=== PATIENT | female | born 1990 | race Caucasian/White ===

== ENCOUNTER 2020-04-02 10:25 | Emergency (ER) | payer MEDICAID ==
[2020-04-02 10:39] VITALS: BP 118/74; PULSE 111
--- NOTE | 2020-04-02 10:56 | EDM.PDOC ---
ED HPI GENERAL MEDICAL PROBLEM - General Chief Complaint: Abdominal Pain Stated Complaint: LOWER RIGHT SIDE ABD PAIN Time Seen by Provider: 04/02/20 10:48 Source of Information: Reports: Patient History Limitations: Reports: No Limitations - History of Present Illness Onset: Today Onset Date: 04/01/20 Onset Time: 22:30 Duration: Hour(s): (11), Getting Worse Location: Reports: Abdomen Quality: Reports: Sharp Severity: Severe (Pain awoke her from sleep and then she was unable to sleep the rest of the night. 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 Right Lower Abdomen Pain Score (Numeric/FACES): 9 - Related Data Allergies Allergy/AdvReac Type Severity Reaction Status Date / Time acetaminophen Allergy Hives Verified 04/02/20 10:41 [From Tylenol-Codeine #3] cephalexin [Cephalexin] Allergy Rash Verified 04/02/20 10:41 codeine phosphate Allergy Hives Verified 04/02/20 10:41 [From Tylenol-Codeine #3] Home Meds: Home Meds NK [No Known Home Meds] 04/02/20 [History] Past Medical History - Past Health History Medical/Surgical History: Denies Medical/Surgical History Other Respiratory History: smoker Genitourinary History: Reports: Renal Calculus 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 Denies: Black Stool, Bloody Stool, Diarrhea, Distension : Reports: Dysuria Neurological: Denies: Confusion, Headache Psychiatric: Reports: No Symptoms ED EXAM, GI/ABD - Physical Exam Exam: See Below Exam Limited By: No Limitations General Appearance: Alert, Obese Ears: Normal External Exam Nose: Normal Inspection Throat/Mouth: Normal Inspection Head: Atraumatic, Normocephalic Neck: Normal Inspection Respiratory/Chest: No Respiratory Distress, Lungs Clear, Normal Breath Sounds Cardiovascular: No Murmur, Tachycardia GI/Abdominal Exam: No Organomegaly, Tender (Both lower quadrants, right more so than left), Abnormal Bowel Sounds (No bowel sounds heard). No: Guarding, Rigid Extremities: Normal Inspection, Normal Range of Motion Neurological: Alert, Oriented Psychiatric: Normal Affect Skin Exam: Warm, Dry Course - Vital Signs Text/Narrative:: 1250 The patient's CBC, comprehensive profile and urinalysis are all normal. I have communicated this to the patient. She insists that she had severe pain like she has never had before. She states she still has pain but now she is hungry and wants something to eat. Perform CT scan if there is no gross abnormality will go ahead and feed her. Last Recorded V/S: Last Vital Signs Temp 36.4 C 04/02/20 10:45 Pulse 111 H 04/02/20 10:45 Resp 16 04/02/20 10:45 BP 118/74 04/02/20 10:45 Pulse Ox 97 04/02/20 10:45 - Orders/Labs/Meds Orders: Active Orders 24 hr Category Date Time Status Iopamidol [Isovue-300 (61%)] Med 04/02/20 13:04 Active 98 ml IV . DIRECTED PRN Medication Orders Iopamidol (Isovue-300 (61%)) 98 ml IV . DIRECTED PRN PRN Reason: RADIOLOGY EXAM Stop: 04/03/20 13:05 Last Admin: 04/02/20 13:46 Dose: 98 ml Labs: Laboratory Tests 04/02/20 04/02/20 04/02/20 Range/Units 11:10 11:10 11:10 WBC 7.9 (4.5-11.0) K/uL RBC 4.65 (3.30-5.50) M/uL Hgb 13.4 D (12.0-15.0) g/dL Hct 41.6 (36.0-48.0) % MCV 90 (80-98) fL MCH 29 (27-31) pg MCHC 32 (32-36) % Plt Count 297 (150-400) K/uL Sodium 135 L (140-148) mmol/L Potassium 4.5 (3.6-5.2) mmol/L Chloride 100 (100-108) mmol/L Carbon Dioxide 28 (21-32) mmol/L Anion Gap 11.5 (5.0-14.0) mmol/L BUN 11 (7-18) mg/dL Creatinine 0.8 (0.6-1.0) mg/dL Est Cr Clr Drug Dosing 85.83 mL/min Estimated GFR (MDRD) > 60 (>60) Glucose 84 (74-106) mg/dL Lactic Acid 0.7 (0.4-2.0) mmol/L Calcium 8.4 L (8.5-10.1) mg/dL Total Bilirubin 0.3 (0.2-1.0) mg/dL AST 19 (15-37) U/L ALT 33 (12-78) U/L Alkaline Phosphatase 83 (46-116) U/L Total Protein 7.4 (6.4-8.2) g/dL Albumin 3.2 L (3.4-5.0) g/dL Globulin 4.2 H (2.3-3.5) g/dL Albumin/Globulin Ratio 0.8 L (1.2-2.2) Lipase 87 (73-393) U/L Urine Color (YELLOW) Urine Appearance (CLEAR) Urine pH (5.0-8.0) Ur Specific [place] (1.008-1.030) Urine Protein (NEGATIVE) mg/dL Urine Glucose (UA) (NEGATIVE) mg/dL Urine Ketones (NEGATIVE) mg/dL Urine Occult Blood (NEGATIVE) Urine Nitrite (NEGATIVE) Urine Bilirubin (NEGATIVE) Urine Urobilinogen (0.2-1.0) EU/dL Ur Leukocyte Esterase (NEGATIVE) Urine RBC (0-5) Urine WBC (0-5) Ur Epithelial Cells Amorphous Sediment Urine Bacteria Urine Mucus Urine HCG, Qual 04/02/20 04/02/20 Range/Units 12:06 12:06 WBC (4.5-11.0) K/uL RBC (3.30-5.50) M/uL Hgb (12.0-15.0) g/dL Hct (36.0-48.0) % MCV (80-98) fL MCH (27-31) pg MCHC (32-36) % Plt Count (150-400) K/uL Sodium (140-148) mmol/L Potassium (3.6-5.2) mmol/L Chloride (100-108) mmol/L Carbon Dioxide (21-32) mmol/L Anion Gap (5.0-14.0) mmol/L BUN (7-18) mg/dL Creatinine (0.6-1.0) mg/dL Est Cr Clr Drug Dosing mL/min Estimated GFR (MDRD) (>60) Glucose (74-106) mg/dL Lactic Acid (0.4-2.0) mmol/L Calcium (8.5-10.1) mg/dL Total Bilirubin (0.2-1.0) mg/dL AST (15-37) U/L ALT (12-78) U/L Alkaline Phosphatase (46-116) U/L Total Protein (6.4-8.2) g/dL Albumin (3.4-5.0) g/dL Globulin (2.3-3.5) g/dL Albumin/Globulin Ratio (1.2-2.2) Lipase (73-393) U/L Urine Color Yellow (YELLOW) Urine Appearance Clear (CLEAR) Urine pH 7.0 (5.0-8.0) Ur Specific [place] 1.015 (1.008-1.030) Urine Protein Negative (NEGATIVE) mg/dL Urine Glucose (UA) Negative (NEGATIVE) mg/dL Urine Ketones Negative (NEGATIVE) mg/dL Urine Occult Blood Negative (NEGATIVE) Urine Nitrite Negative (NEGATIVE) Urine Bilirubin Negative (NEGATIVE) Urine Urobilinogen 0.2 (0.2-1.0) EU/dL Ur Leukocyte Esterase Negative (NEGATIVE) Urine RBC Not seen (0-5) Urine WBC 0-5 (0-5) Ur Epithelial Cells Few Amorphous Sediment Not seen Urine Bacteria Few Urine Mucus Not seen Urine HCG, Qual Negative Meds: Medications Generic Name Dose Route Start Last Admin Trade Name Freq PRN Reason Stop Dose Admin Iopamidol 98 ml 04/02/20 13:04 04/02/20 13:46 Isovue-300 (61%) IV 04/03/20 13:05 98 ml . DIRECTED PRN Administration RADIOLOGY EXAM Discontinued Medications Generic Name Dose Route Start Last Admin Trade Name Freq PRN Reason Stop Dose Admin Sodium Chloride 70 mls @ 3 mls/sec 04/02/20 13:15 Normal Saline IV 04/02/20 13:16 ASDIRECTED [facility] Ondansetron HCl 4 mg 04/02/20 10:59 04/02/20 11:36 Zofran Odt PO 04/02/20 11:00 4 mg ONETIME ONE Administration Oxycodone HCl 5 mg 04/02/20 11:01 04/02/20 11:36 Oxycodone PO 04/02/20 11:02 5 mg ONETIME ONE Administration Sodium Chloride 10 ml 04/02/20 13:04 04/02/20 13:44 Saline Flush FLUSH 04/02/20 13:05 10 ml ONETIME ONE Administration Departure - Departure Time of Disposition: 14:36 Disposition: Home, Self-Care 01 Clinical Impression: Abdominal pain - Discharge Information Instructions: Abdominal Pain, Adult, [place] Referrals: PCP,None [Primary Care Provider] - Forms: ED Department Discharge Additional Instructions: Follow-up with your primary care doctor as soon as possible. We do not have a distinct diagnosis for your abdominal pain at this time. Other things that can cause abdominal pain that would not show up on the testing that we did in the emergency department would include: Kidney stone that has passed, viral enteritis (stomach flu), endometriosis, colitis (inflammation of the lining of your colon). Sepsis Event Note - Evaluation Sepsis Screening Result: Possible Sepsis Risk - Focused Exam Vital Signs: Vital Signs Temp Pulse Resp BP Pulse Ox 04/02/20 10:45 36.4 C 111 H 16 118/74 97 04/02/20 10:38 36.4 C 111 H 16 118/74 97 Date Exam was Performed: 04/02/20 Time Exam was Performed: 14:35 - My Orders Last 24 Hours: My Active Orders 04/02/20 13:04 Iopamidol [Isovue-300 (61%)] 98 ml IV . DIRECTED PRN - Assessment/Plan Last 24 Hours: My Active Orders 04/02/20 13:04 Iopamidol [Isovue-300 (61%)] 98 ml IV . DIRECTED PRN
[2020-04-02] MEDS: oxyCODONE 5 MG Tab PO ONE (11:36)
[2020-04-02] MEDS: Ondansetron 4 MG Tab.DIS PO ONE (11:36)
[2020-04-02] MEDS: Sodium Chloride 0.9% 10 ML Syringe FLUSH ONE (13:44)
[2020-04-02] MEDS: Iopamidol 612 MG/ML 100 ML Bottle IV PRN (13:46)
--- NOTE | 2020-04-02 14:16 | CRLCT ---
INDICATION: Abdominal pain. TECHNIQUE: CT abdomen and pelvis acquired with 96 cc Isovue-300 IV contrast. COMPARISON: None. FINDINGS: Lower chest: Unremarkable. Liver: Unremarkable. Normal in size and attenuation. No masses. Gallbladder and bile ducts: Unremarkable. No stones or inflammation. No biliary dilatation. Pancreas: Unremarkable. No mass or inflammation. Spleen: Unremarkable. Normal in size. No masses. Adrenal glands: Unremarkable. No nodules. Kidneys: Unremarkable. No masses, stones, or hydronephrosis. GI tract: Unremarkable. Normal in caliber. No sign of mass or inflammation. Normal appendix. Vasculature: Unremarkable. Mesenteric arteries are patent. Lymph nodes: No lymphadenopathy. Omentum/Peritoneum/Abdominal Wall: Unremarkable. No sign of mass or infiltration. No free air or significant free fluid. Pelvis: Unremarkable. Bones: Unremarkable for age. IMPRESSION: Unremarkable CT of the abdomen and pelvis. No findings to explain abdominal pain. Dictated by Dwaine Deutsch MD @ 04/02/2020 2:13:37 PM Please note that all CT scans at this facility use dose modulation, iterative reconstruction, and/or weight-based dosing when appropriate to reduce radiation dose to as low as reasonably achievable. Dictated by: Dwaine Deutsch MD @ 04/02/2020 14:13:41 (Electronically Signed)
== END 2020-04-02 14:55 | disposition home or self-care (01) ==
LOC: JP.ED 10:25
DX: R10.31 Right lower quadrant pain (principal); R10.32 Left lower quadrant pain; R00.0 Tachycardia, unspecified; F17.210 Nicotine dependence, cigarettes, uncomplicated; Z88.1 Allergy status to other antibiotic agents; Z88.5 Allergy status to narcotic agent
CPT/HCPCS: 36415; 74177; 80053; 81001; 81025; 83605; 83690; 85027; 99284; A9270; Q9967

== ENCOUNTER 2021-08-20 10:27 | Inpatient (IN) | payer MEDICAID ==
[2021-08-20] MEDS ORDERED: ePHEDrine 50 MG/ML SDV IVPUSH PRN (11:08)
[2021-08-20] MEDS: Lactated Ringers 1,000 ML IV ONE (11:10)
--- NOTE | 2021-08-20 11:45 | PCM.LDHP ---
L&D History of Present Illness - General Date of Service: 08/20/21 Admit Problem/Dx: Admission Diagnosis/Problem Admission Diagnosis/Problem Source of Information: Patient History Limitations: Reports: No Limitations - History of Present Illness Introduction:: 08/20/21 Nicole is a at 39 2/7 weeks in active labor. Contractions started last night around 11 pm. They became strong this morning. She is A positive blood type, GBS negative, HIV/hep B/C/RPR all NR. She complains of a gush of fluid around 1000 but had a negative amnisure. SVE 7/100/-2 at 1100, large bag of water felt. Uncomplicated . Timing/Duration: Reports: minutes: (3-4) Location, : Reports: Abdomen, Lower back Severity: Severe Improves with: Reports: None Worsens with: Reports: None Associated Symptoms: Reports: vaginal bleeding (bloody show) - Related Data Allergies/Adverse Reactions: Allergies Allergy/AdvReac Type Severity Reaction Status Date / Time acetaminophen Allergy Hives Verified 04/02/20 10:41 [From Tylenol-Codeine #3] cephalexin [Cephalexin] Allergy Rash Verified 04/02/20 10:41 codeine phosphate Allergy Hives Verified 04/02/20 10:41 [From Tylenol-Codeine #3] Home Medications: Home Meds NK [No Known Home Meds] 04/02/20 [History] Past Medical History - Past Health History Medical/Surgical History: Denies Medical/Surgical History Other Respiratory History: smoker Genitourinary History: Reports: Renal Calculus 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 LMP (Approximate): Social & Family History - Caffeine Use Caffeine Use: Reports: Soda H&P Review of Systems - Review of Systems: Review Of Systems: See Below General: Reports: No Symptoms HEENT: Reports: No Symptoms Pulmonary: Reports: No Symptoms Cardiovascular: Reports: No Symptoms Gastrointestinal: Reports: No Symptoms Genitourinary: Reports: No Symptoms Musculoskeletal: Reports: No Symptoms Skin: Reports: No Symptoms Psychiatric: Reports: No Symptoms Neurological: Reports: No Symptoms Hematologic/Lymphatic: Reports: No Symptoms Immunologic: Reports: No Symptoms L&D Exam - Exam Exam: See Below - Vital Signs Vital Signs: Last Vital Signs Temp 35.2 C L 08/20/21 10:50 Pulse 93 10/05/21 10:58 Resp BP 118/71 08/20/21 10:51 Pulse Ox 99 08/20/21 10:58 Weight: 86.183 kg - OB Specific Contraction Duration (sec): 65 - 130 Contraction Frequency (min): 3 - 4 Contraction Intensity: Strong Movement: Active Heart Tones: Present Heart Rate (FHR) Variability: Moderate (6-25 bpm) Presentation: Vertex - Exam General: Alert, Oriented HEENT: PERRLA Neck: Supple, Trachea Midline Lungs: Clear to Auscultation, Normal Respiratory Effort Cardiovascular: Regular Rate, Regular Rhythm GI/Abdominal Exam: Normal Bowel Sounds, Pelvis Stable Genitourinary: Normal external exam, Normal bimanual exam, Cervical dilitation Back Exam: Normal Inspection, Full Range of Motion Extremities: Normal Inspection, No Pedal Edema Skin: Warm, Dry, Intact Neurological: Cranial Nerves Intact, Reflexes Equal Bilateral Psychiatric: Alert, Normal Affect, Normal Mood - Patient Data Lab Results Last 24 hrs: Laboratory Results - last 24 hr 08/20/21 08/20/21 08/20/21 Range/Units 10:42 10:49 11:03 WBC (4.5-11.0) K/uL RBC (3.30-5.50) M/uL Hgb (12.0-15.0) g/dL Hct (36.0-48.0) % MCV (80-98) fL MCH (27-31) pg MCHC (32-36) % Plt Count (150-400) K/uL Neut % (Auto) (36-66) % Lymph % (Auto) (24-44) % [place] % (Auto) (2-6) % Eos % (Auto) (2-4) % Baso % (Auto) (0-1) % Urine Color Yellow (YELLOW) Urine Appearance Cloudy A (CLEAR) Urine pH 6.0 (5.0-8.0) Ur Specific [place] >= 1.030 (1.008-1.030) Urine Protein 30 H (NEGATIVE) mg/dL Urine Glucose (UA) Negative (NEGATIVE) mg/dL Urine Ketones 15 H (NEGATIVE) mg/dL Urine Occult Blood Large H (NEGATIVE) Urine Nitrite Negative (NEGATIVE) Urine Bilirubin Small H (NEGATIVE) Urine Urobilinogen 0.2 (0.2-1.0) EU/dL Ur Leukocyte Esterase Small H (NEGATIVE) Urine RBC 5-10 H (0-5) Urine WBC 10-20 H (0-5) Ur Epithelial Cells Many Amorphous Sediment Not seen Urine Bacteria Moderate Urine Mucus Many Membrane Rupture Negative (NEGATIVE) SARS CoV-2 RNA Rapid NEREYDA Negative 08/20/21 Range/Units 11:04 WBC 15.6 H (4.5-11.0) K/uL RBC 4.18 (3.30-5.50) M/uL Hgb 12.3 (12.0-15.0) g/dL Hct 36.9 (36.0-48.0) % MCV 88 (80-98) fL MCH 29 (27-31) pg MCHC 33 (32-36) % Plt Count 199 (150-400) K/uL Neut % (Auto) 75.7 H (36-66) % Lymph % (Auto) 14.0 L (24-44) % [place] % (Auto) 9.6 H (2-6) % Eos % (Auto) 0.4 L (2-4) % Baso % (Auto) 0.3 (0-1) % Urine Color (YELLOW) Urine Appearance (CLEAR) Urine pH (5.0-8.0) Ur Specific [place] (1.008-1.030) Urine Protein (NEGATIVE) mg/dL Urine Glucose (UA) (NEGATIVE) mg/dL Urine Ketones (NEGATIVE) mg/dL Urine Occult Blood (NEGATIVE) Urine Nitrite (NEGATIVE) Urine Bilirubin (NEGATIVE) Urine Urobilinogen (0.2-1.0) EU/dL Ur Leukocyte Esterase (NEGATIVE) Urine RBC (0-5) Urine WBC (0-5) Ur Epithelial Cells Amorphous Sediment Urine Bacteria Urine Mucus Membrane Rupture (NEGATIVE) SARS CoV-2 RNA Rapid NEREYDA Result Diagrams: 08/20/21 11:04 - Problem List (1) Term SNOMED Code(s): 95130408 ICD Code: Z34.90 - ENCNTR FOR SUPRVSN OF NORMAL , UNSP, UNSP TRIMESTER Status: Acute Current Visit: Yes (2) Active labor at term SNOMED Code(s): 19374082 ICD Code: FEF0724 - Status: Acute Current Visit: Yes Problem List Initiated/Reviewed/Updated: Yes Orders Last 24hrs: Active Orders 24 hr Category Date Time Status Communication Order [RC] ASDIRECTED Care 08/20/21 11:08 Active Communication Order [RC] Per Unit Routine Care 08/20/21 11:26 Active Communication Order [RC] Per Unit Routine Care 08/20/21 11:26 Active Communication Order [RC] Per Unit Routine Care 08/20/21 11:26 Active Communication Order [RC] Per Unit Routine Care 08/20/21 11:26 Active Insert Urinary Catheter [OM.PC] ASDIRECTED Care 08/20/21 11:15 Ordered Local Anesthetic Infusion Pump [RC] ASDIRECTED Care 08/20/21 11:08 Active Nitrous Oxide Delivery [RC] ASDIRECTED Care 08/20/21 11:26 Active Oxygen Therapy [RC] ASDIRECTED Care 08/20/21 11:26 Active PCEA Epidural [RC] ASDIRECTED Care 08/20/21 11:08 Active PCEA Epidural [RC] ASDIRECTED Care 08/20/21 11:08 Active Pulse Oximetry [RC] ASDIRECTED Care 08/20/21 11:26 Active Urinary Catheter Assessment [RC] ASDIRECTED Care 08/20/21 11:08 Active Verify Patient Consent Obtain [RC] ASDIRECTED Care 08/20/21 11:26 Active Vital Signs [RC] PER UNIT ROUTINE Care 08/20/21 11:26 Active DRUG SCREEN, URINE [URCHEM] Routine Lab 08/20/21 11:31 Ordered TYPE AND SCREEN [BBK] Routine Lab 08/20/21 11:08 Ordered Lactated Ringers [Ringers, Lactated] 1,000 ml Med 08/20/21 11:05 Active IV BOLUS ePHEDrine [ePHEDrine sulfate] Med 08/20/21 11:08 Active 10 mg IVPUSH ASDIRECTED PRN Epidural Catheter Management [OM.PC] Urgent Oth 08/20/21 11:08 Ordered Medication Discontinuation Instructions [OM.PC] Routine Oth 08/20/21 11:26 Ordered Medication Orders Ephedrine Sulfate (Ephedrine 50 Mg/Ml Sdv) 10 mg IVPUSH ASDIRECTED PRN PRN Reason: Hypotension Lactated Ringer's (Ringers, Lactated) 1,000 mls @ 999 mls/hr IV BOLUS ONE Stop: 08/20/21 12:05 Last Admin: 10/05/21 11:10 Dose: 999 mls/hr Documented by: ZEENAT Assessment/Plan Comment:: 08/20/21 in active labor Early decelerations but otherwise good variability Hgb 12.3 GBS negative Plan: Set up and prepare for delivery Anticipate Trying for an epidural but using nitrous now, may not have time for an epidural
[2021-08-20] MEDS ORDERED: Lactated Ringers 1,000 ML IV SCH (12:15)
[2021-08-20] MEDS ORDERED: Ropivacaine 100 ML ONE (12:16)
--- NOTE | 2021-08-20 12:39 | PCM.PNLD ---
Labor Progress Note - VS & Meds Vital Signs: Last Vital Signs Temp 96.4 F L 08/20/21 11:45 Pulse 105 H 08/20/21 11:50 Resp BP 135/63 08/20/21 11:45 Pulse Ox 99 08/20/21 11:50 Active Medications: Current Medications Ephedrine Sulfate (Ephedrine 50 Mg/Ml Sdv) 10 mg IVPUSH ASDIRECTED PRN PRN Reason: Hypotension Oxytocin/Sodium Chloride (Pitocin In Ns 20 Units/1,000 Ml) 20 unit in 1,000 mls @ 2,997 mls/hr IV ASDIRECTED JABIER Lactated Ringer's (Ringers, Lactated) 1,000 mls @ 125 mls/hr IV ASDIRECTED JABIER Discontinued Medications Lactated Ringer's (Ringers, Lactated) 1,000 mls @ 999 mls/hr IV BOLUS ONE Stop: 08/20/21 12:05 Last Admin: 08/20/21 11:10 Dose: 999 mls/hr Documented by: Ropivacaine (Naropin 0.2%) Confirm Administered Dose 100 mls @ as directed .ROUTE .STK-MED ONE Stop: 08/20/21 12:17 - Uterine Contractions Uterine Monitoring Mode: External [place] Contraction Frequency (min): 1 - 6 Contraction Duration (sec): 40 - 120 Contraction Intensity: Strong Uterine Resting Tone: Soft Other Uterine Monitoring: nitrous - Monitoring Monitor Mode: External Ultrasound Heart Rate (FHR) Baseline: 140 Heart Rate (FHR) Variability: Moderate (6-25 bpm) Accelerations: Present, 15x15 Decelerations: Variable Strip Review: Category II - Vaginal Exam Dilation (cm): 8 Effacement (Percent): 100 Station: -2 Cervical Position: Anterior Sterile Vaginal Exam Performed By: Zhane Crews - Labor Progress (Free Text) Labor Progress: 08/20/21 Nicole has been coping well with contractions by using nitrous oxide. By 1200, she has an epidural in place and is very comfortable. SVE at 1215 was 8/100/-2 with a bulging bag of water. Her contractions have spaced some since the epidural but she prefers to wait at this time rather than AROM. Plan will be to monitor contraction pattern, place a pritchard, and reassess cervical change in a few hours. Will anticipate
--- NOTE | 2021-08-20 13:09 | ANES ---
DATE OF SERVICE: 08/20/2021 INDICATIONS: Nicole is a 31-year-old female patient of July Yuan in our Obstetric Unit. 39 weeks, she is in labor. I was asked to consult the patient for labor epidural. Upon arrival, I find a 31-year-old, healthy female. Reviewed with her the procedure as well as risks and benefits. Discussed her medical history and reviewed lab work, found no contraindication to the labor epidural placement. TECHNIQUE: I had her seated at the edge of the bed after consent was received. Betadine prep x3 to lumbar region. Sterile drape was placed, 1% lidocaine skin wheal as well as deep at the L3-L4 region. I was unable to pass the 17-gauge Tou[place] due to bony structure and positioning. I repositioned to L3-L4 and was able to find loss of resistance with ease. Negative CSF, negative heme, negative paresthesia. I inserted a silicone catheter to 13 cm. I removed the needle. A test dose of 3 mL of 1.5% lidocaine and 1:200,000 epinephrine. Catheter was secured to her back. I placed her in a supine position. There were negative sequelae from the test dose. I dosed her with 12 mL of 0.2% ropivacaine and began an infusion of that same 0.2% ropivacaine at 12 mL an hour. She tolerated the procedure quite well. Please refer to nurse's notes for vital signs and neuro status, which were unchanged throughout the procedure. I then reported off to nurse and provider. Cornelius Hood CRNA /[id number]
[2021-08-20] MEDS ORDERED: Sodium Chloride 0.9% 10 ML Syringe FLUSH PRN (14:36)
[2021-08-20] MEDS ORDERED: Docusate Sodium 100 MG Cap PO PRN (17:24)
--- NOTE | 2021-08-20 17:40 | PCM.DEL ---
L & D Note - General Info Date of Service: 08/20/21 Mother's Due Date: 08/25/21 - Delivery Note Labor: Spontaneous, Augmented by ARM Delivery Outcome: Livebirth Delivery Method: Spontaneous Vaginal Delivery-Single Delivery Mode: Spontaneous Presentation: Right Occiput Anterior (ASHLEE) Nuchal Cord: None Anesthesia Type: Epidural Amniotic Fluid Description: Clear Episiotomy Type: None Laceration: None Placenta: Intact, Spontaneous Cord: 3 Vessels Estimated Blood Loss: 150 Resuscitation Needed: No [place]: Bulb Syringe, Stimulated, [place] Used Score 1 min: 8 Score 5 min: 9 Second Stage Interventions: Reports: Second Nurse Assessed Progress of Descent, Second Nurse Reviewed Contraction Pattern, Second Nurse Reviewed Heart Tones, Encouragement Given, Pushing Effectively, Pushing, Knee Chest Position, Pushing, Pulls Own Legs Back, Pushing, Right Side Delivery Comments (Free Text/Narrative):: 08/20/21 Nicole is a 31 year old at 39 weeks and 2 days gestation. She had a spontaneous vaginal delivery of a baby girl at 1710 in the GHAN[place]YAM position. Baby was stimulated and bulb suctioned and APGARs were 8 and 9 at 1 and 5 minutes respectively. There was no nuchal cord and it was a 3 vessel cord. She weighed 7lbs 15oz. The placenta was expressed spontaneously intact. There was no episiotomy and no tears, though she did have one small skin split on each labia. EBL was 150ml. Mother to recovery room in stable condition. to nursery in stable condition. Stages of labor: First: 7050-8199 Second: 6553-9325 Third: 2362-9869 ------- - General Info Date of Service: 08/20/21 Admission Dx/Problem (Free Text): Admission Diagnosis/Problem Admission Diagnosis/Problem Functional Status: Reports: Pain Controlled, Tolerating Diet - Review of Systems General: Reports: No Symptoms HEENT: Reports: No Symptoms Pulmonary: Reports: No Symptoms Cardiovascular: Reports: No Symptoms Gastrointestinal: Reports: No Symptoms Genitourinary: Reports: No Symptoms Musculoskeletal: Reports: No Symptoms Skin: Reports: No Symptoms Neurological: Reports: No Symptoms Psychiatric: Reports: No Symptoms - Patient Data Vitals - Most Recent: Last Vital Signs Temp 96.1 F L 08/20/21 14:31 Pulse 103 H 08/20/21 16:34 Resp 16 08/20/21 12:45 BP 113/57 L 08/20/21 16:34 Pulse Ox 98 08/20/21 14:50 Weight - Most Recent: 190 lb Lab Results Last 24 Hours: Laboratory Results - last 24 hr 08/20/21 08/20/21 08/20/21 Range/Units 10:42 10:49 11:03 WBC (4.5-11.0) K/uL RBC (3.30-5.50) M/uL Hgb (12.0-15.0) g/dL Hct (36.0-48.0) % MCV (80-98) fL MCH (27-31) pg MCHC (32-36) % Plt Count (150-400) K/uL Neut % (Auto) (36-66) % Lymph % (Auto) (24-44) % Fisher % (Auto) (2-6) % Eos % (Auto) (2-4) % Baso % (Auto) (0-1) % Urine Color Yellow (YELLOW) Urine Appearance Cloudy A (CLEAR) Urine pH 6.0 (5.0-8.0) Ur Specific [place] >= 1.030 (1.008-1.030) Urine Protein 30 H (NEGATIVE) mg/dL Urine Glucose (UA) Negative (NEGATIVE) mg/dL Urine Ketones 15 H (NEGATIVE) mg/dL Urine Occult Blood Large H (NEGATIVE) Urine Nitrite Negative (NEGATIVE) Urine Bilirubin Small H (NEGATIVE) Urine Urobilinogen 0.2 (0.2-1.0) EU/dL Ur Leukocyte Esterase Small H (NEGATIVE) Urine RBC 5-10 H (0-5) Urine WBC 10-20 H (0-5) Ur Epithelial Cells Many Amorphous Sediment Not seen Urine Bacteria Moderate Urine Mucus Many Membrane Rupture Negative (NEGATIVE) Urine Opiates Screen (NEGATIVE) Ur Oxycodone Screen (NEGATIVE) Urine Methadone Screen (NEGATIVE) Ur Propoxyphene Screen (NEGATIVE) Ur Barbiturates Screen (NEGATIVE) Ur Tricyclics Screen (NEGATIVE) Ur Phencyclidine Scrn (NEGATIVE) Ur Amphetamine Screen (NEGATIVE) U Methamphetamines Scrn (NEGATIVE) Urine MDMA Screen (NEGATIVE) U Benzodiazepines Scrn (NEGATIVE) U Cocaine Metab Screen (NEGATIVE) U Marijuana (THC) Screen (NEGATIVE) SARS CoV-2 RNA Rapid NEREYDA Negative Blood Type Gel Antibody Screen 08/20/21 08/20/21 08/20/21 Range/Units 11:04 11:30 11:31 WBC 15.6 H (4.5-11.0) K/uL RBC 4.18 (3.30-5.50) M/uL Hgb 12.3 (12.0-15.0) g/dL Hct 36.9 (36.0-48.0) % MCV 88 (80-98) fL MCH 29 (27-31) pg MCHC 33 (32-36) % Plt Count 199 (150-400) K/uL Neut % (Auto) 75.7 H (36-66) % Lymph % (Auto) 14.0 L (24-44) % Fisher % (Auto) 9.6 H (2-6) % Eos % (Auto) 0.4 L (2-4) % Baso % (Auto) 0.3 (0-1) % Urine Color (YELLOW) Urine Appearance (CLEAR) Urine pH (5.0-8.0) Ur Specific [place] (1.008-1.030) Urine Protein (NEGATIVE) mg/dL Urine Glucose (UA) (NEGATIVE) mg/dL Urine Ketones (NEGATIVE) mg/dL Urine Occult Blood (NEGATIVE) Urine Nitrite (NEGATIVE) Urine Bilirubin (NEGATIVE) Urine Urobilinogen (0.2-1.0) EU/dL Ur Leukocyte Esterase (NEGATIVE) Urine RBC (0-5) Urine WBC (0-5) Ur Epithelial Cells Amorphous Sediment Urine Bacteria Urine Mucus Membrane Rupture (NEGATIVE) Urine Opiates Screen Negative (NEGATIVE) Ur Oxycodone Screen Negative (NEGATIVE) Urine Methadone Screen Negative (NEGATIVE) Ur Propoxyphene Screen Negative (NEGATIVE) Ur Barbiturates Screen Negative (NEGATIVE) Ur Tricyclics Screen Negative (NEGATIVE) Ur Phencyclidine Scrn Negative (NEGATIVE) Ur Amphetamine Screen Negative (NEGATIVE) U Methamphetamines Scrn Negative (NEGATIVE) Urine MDMA Screen Negative (NEGATIVE) U Benzodiazepines Scrn Negative (NEGATIVE) U Cocaine Metab Screen Negative (NEGATIVE) U Marijuana (THC) Screen Negative (NEGATIVE) SARS CoV-2 RNA Rapid NEREYDA Blood Type A POSITIVE Gel Antibody Screen Negative Med Orders - Current: Current Medications Ephedrine Sulfate (Ephedrine 50 Mg/Ml Sdv) 10 mg IVPUSH ASDIRECTED PRN PRN Reason: Hypotension Oxytocin/Sodium Chloride (Pitocin In Ns 20 Units/1,000 Ml) 20 unit in 1,000 mls @ 999 mls/hr IV ASDIRECTED JABIER Lactated Ringer's (Ringers, Lactated) 1,000 mls @ 125 mls/hr IV ASDIRECTED JABIER Sodium Chloride (Sodium Chloride 0.9% 10 Ml Syringe) 10 ml FLUSH ASDIRECTED PRN PRN Reason: Keep Vein Open Discontinued Medications Lactated Ringer's (Ringers, Lactated) 1,000 mls @ 999 mls/hr IV BOLUS ONE Stop: 08/20/21 12:05 Last Admin: 08/20/21 11:10 Dose: 999 mls/hr Documented by: Ropivacaine (Naropin 0.2%) Confirm Administered Dose 100 mls @ as directed .ROUTE .STK-MED ONE Stop: 08/20/21 12:17 - Exam Urinary Catheter Total Time: 0Days 4Hours General: Alert, Oriented HEENT: Pupils Equal, Pupils Reactive, EOMI, Mucous Membr. Moist/[place] Neck: Supple Lungs: Normal Respiratory Effort Cardiovascular: Regular Rate, Regular Rhythm GI/Abdominal Exam: Soft, Non-Tender, Pelvis Stable (Female) Exam: Normal External Exam, Enlarged Uterus, Heart Tones Back Exam: Full Range of Motion Extremities: Normal Range of Motion Skin: Warm, Dry, Intact Neurological: No New Focal Deficit Psy/Mental Status: Alert, Normal Affect, Normal Mood - Problem List & Annotations (1) Normal spontaneous vaginal delivery SNOMED Code(s): 44935482, 823756388 Code(s): O80 - ENCOUNTER FOR FULL-TERM UNCOMPLICATED DELIVERY Status: Acute Current Visit: Yes (2) (infant) SNOMED Code(s): 126751355 Code(s): Z78.9 - OTHER SPECIFIED HEALTH STATUS Status: Acute Current Visit: Yes (3) started SNOMED Code(s): 299991303 Code(s): TVF0712 - Status: Acute Current Visit: Yes (4) Active labor at term SNOMED Code(s): 08866966 Code(s): PMS7774 - Status: Acute Current Visit: Yes - Problem List Review Problem List Initiated/Reviewed/Updated: Yes - My Orders Last 24 Hours: My Active Orders 08/20/21 14:30 Notify Provider Vital Signs [RC] PRN 08/20/21 14:36 Patient Status [ADT] Routine Communication Order [RC] ASDIRECTED Heart Tones [RC] PER UNIT ROUTINE Non Stress Test [RC] Click to Edit Notify Provider [RC] PRN Sodium Chloride 0.9% [Saline Flush] 10 ml FLUSH ASDIRECTED PRN Saline Lock Insert [OM.PC] Routine Resuscitation Status Routine - Assessment Assessment:: 08/20/21 without complications No lacerations Adequate support, partner at bedside - Plan Plan:: 08/20/21 in active labor Early decelerations but otherwise good variability Hgb 12.3 GBS negative Plan: Set up and prepare for delivery Anticipate Trying for an epidural but using nitrous now, may not have time for an epidural 08/20/21 1700 Routine cares Encourage and support Monitor bleeding Expect discharge between 24 and 48 hours
[2021-08-20] MEDS: Lanolin 100% Cream 40 GM Tube TOP PRN (18:02)
[2021-08-20] MEDS: Ibuprofen 200 MG Tab, 24 Tab Bulk Bottle PO PRN (18:02)
[2021-08-20] MEDS: Acetaminophen 325 MG Tab, 50 Tab Bulk Bottle PO PRN (20:03)
[2021-08-21] MEDS: Acetaminophen/HYDROcodone 325-5 MG Tab PO ONE (05:45)
[2021-08-21] MEDS: Acetaminophen/HYDROcodone 325-5 MG Tab ONE (08:04)
[2021-08-21] MEDS: Witch Hazel Medicated Pads 100/Jar TOP PRN (10:03)
--- NOTE | 2021-08-21 11:00 | PCM.PNPP ---
- General Info Date of Service: 08/21/21 Admission Dx/Problem (Free Text): Admission Diagnosis/Problem Admission Diagnosis/Problem Normal spontaneous vaginal delivery Functional Status: Reports: Tolerating Diet, Ambulating, Urinating - Review of Systems General: Reports: No Symptoms HEENT: Reports: No Symptoms Pulmonary: Reports: No Symptoms, Shortness of Breath (sometimes feels like a twinge of back pain "takes her breath away") Cardiovascular: Reports: No Symptoms Gastrointestinal: Reports: No Symptoms Genitourinary: Reports: No Symptoms Musculoskeletal: Reports: No Symptoms, Back Pain (at epidural site, notices sharp pain with movement) Skin: Reports: No Symptoms Neurological: Reports: No Symptoms Psychiatric: Reports: No Symptoms Systems Review Comment:: 08/21/21 Nicole is having intense sharp back pain that is somewhat relieved with medication. She notices it at the site of her epidural, and feels it wraps around to her belly in a sharp "twinge feeling that takes her breath away". No dyspnea on exertion, lung puente clear. She denies muscle pain on palpation at the site. - General Info Date of Service: 08/21/21 - Patient Data Vital Signs - Most Recent: Last Vital Signs Temp 97.1 F 08/21/21 07:15 Pulse 85 08/21/21 07:15 Resp 18 08/21/21 07:15 BP 97/50 L 08/21/21 07:15 Pulse Ox 100 08/21/21 07:15 Weight - Most Recent: 190 lb I&O - Last 24 Hours: Intake & Output 08/20/21 08/21/21 08/21/21 22:59 06:59 14:59 Intake Total 3399 Balance 3399 Lab Results - Last 24 Hours: Laboratory Results - last 24 hr 08/20/21 08/20/21 08/20/21 Range/Units 10:42 10:49 11:03 WBC (4.5-11.0) K/uL RBC (3.30-5.50) M/uL Hgb (12.0-15.0) g/dL Hct (36.0-48.0) % MCV (80-98) fL MCH (27-31) pg MCHC (32-36) % Plt Count (150-400) K/uL Neut % (Auto) (36-66) % Lymph % (Auto) (24-44) % Saline % (Auto) (2-6) % Eos % (Auto) (2-4) % Baso % (Auto) (0-1) % Urine Color Yellow (YELLOW) Urine Appearance Cloudy A (CLEAR) Urine pH 6.0 (5.0-8.0) Ur Specific Dora >= 1.030 (1.008-1.030) Urine Protein 30 H (NEGATIVE) mg/dL Urine Glucose (UA) Negative (NEGATIVE) mg/dL Urine Ketones 15 H (NEGATIVE) mg/dL Urine Occult Blood Large H (NEGATIVE) Urine Nitrite Negative (NEGATIVE) Urine Bilirubin Small H (NEGATIVE) Urine Urobilinogen 0.2 (0.2-1.0) EU/dL Ur Leukocyte Esterase Small H (NEGATIVE) Urine RBC 5-10 H (0-5) Urine WBC 10-20 H (0-5) Ur Epithelial Cells Many Amorphous Sediment Not seen Urine Bacteria Moderate Urine Mucus Many Membrane Rupture Negative (NEGATIVE) Urine Opiates Screen (NEGATIVE) Ur Oxycodone Screen (NEGATIVE) Urine Methadone Screen (NEGATIVE) Ur Propoxyphene Screen (NEGATIVE) Ur Barbiturates Screen (NEGATIVE) Ur Tricyclics Screen (NEGATIVE) Ur Phencyclidine Scrn (NEGATIVE) Ur Amphetamine Screen (NEGATIVE) U Methamphetamines Scrn (NEGATIVE) Urine MDMA Screen (NEGATIVE) U Benzodiazepines Scrn (NEGATIVE) U Cocaine Metab Screen (NEGATIVE) U Marijuana (THC) Screen (NEGATIVE) SARS CoV-2 RNA Rapid NEREYDA Negative Blood Type Gel Antibody Screen 08/20/21 08/20/21 08/20/21 Range/Units 11:04 11:30 11:31 WBC 15.6 H (4.5-11.0) K/uL RBC 4.18 (3.30-5.50) M/uL Hgb 12.3 (12.0-15.0) g/dL Hct 36.9 (36.0-48.0) % MCV 88 (80-98) fL MCH 29 (27-31) pg MCHC 33 (32-36) % Plt Count 199 (150-400) K/uL Neut % (Auto) 75.7 H (36-66) % Lymph % (Auto) 14.0 L (24-44) % Saline % (Auto) 9.6 H (2-6) % Eos % (Auto) 0.4 L (2-4) % Baso % (Auto) 0.3 (0-1) % Urine Color (YELLOW) Urine Appearance (CLEAR) Urine pH (5.0-8.0) Ur Specific [place]ora (1.008-1.030) Urine Protein (NEGATIVE) mg/dL Urine Glucose (UA) (NEGATIVE) mg/dL Urine Ketones (NEGATIVE) mg/dL Urine Occult Blood (NEGATIVE) Urine Nitrite (NEGATIVE) Urine Bilirubin (NEGATIVE) Urine Urobilinogen (0.2-1.0) EU/dL Ur Leukocyte Esterase (NEGATIVE) Urine RBC (0-5) Urine WBC (0-5) Ur Epithelial Cells Amorphous Sediment Urine Bacteria Urine Mucus Membrane Rupture (NEGATIVE) Urine Opiates Screen Negative (NEGATIVE) Ur Oxycodone Screen Negative (NEGATIVE) Urine Methadone Screen Negative (NEGATIVE) Ur Propoxyphene Screen Negative (NEGATIVE) Ur Barbiturates Screen Negative (NEGATIVE) Ur Tricyclics Screen Negative (NEGATIVE) Ur Phencyclidine Scrn Negative (NEGATIVE) Ur Amphetamine Screen Negative (NEGATIVE) U Methamphetamines Scrn Negative (NEGATIVE) Urine MDMA Screen Negative (NEGATIVE) U Benzodiazepines Scrn Negative (NEGATIVE) U Cocaine Metab Screen Negative (NEGATIVE) U Marijuana (THC) Screen Negative (NEGATIVE) SARS CoV-2 RNA Rapid NEREYDA Blood Type A POSITIVE Gel Antibody Screen Negative 08/21/21 Range/Units 05:11 WBC 15.6 H (4.5-11.0) K/uL RBC 3.97 (3.30-5.50) M/uL Hgb 12.0 (12.0-15.0) g/dL Hct 35.8 L (36.0-48.0) % MCV 90 (80-98) fL MCH 30 (27-31) pg MCHC 34 (32-36) % Plt Count 230 (150-400) K/uL Neut % (Auto) 62.3 (36-66) % Lymph % (Auto) 19.2 L (24-44) % Saline % (Auto) 17.2 H (2-6) % Eos % (Auto) 1.0 L (2-4) % Baso % (Auto) 0.3 (0-1) % Urine Color (YELLOW) Urine Appearance (CLEAR) Urine pH (5.0-8.0) Ur Specific [place]ora (1.008-1.030) Urine Protein (NEGATIVE) mg/dL Urine Glucose (UA) (NEGATIVE) mg/dL Urine Ketones (NEGATIVE) mg/dL Urine Occult Blood (NEGATIVE) Urine Nitrite (NEGATIVE) Urine Bilirubin (NEGATIVE) Urine Urobilinogen (0.2-1.0) EU/dL Ur Leukocyte Esterase (NEGATIVE) Urine RBC (0-5) Urine WBC (0-5) Ur Epithelial Cells Amorphous Sediment Urine Bacteria Urine Mucus Membrane Rupture (NEGATIVE) Urine Opiates Screen (NEGATIVE) Ur Oxycodone Screen (NEGATIVE) Urine Methadone Screen (NEGATIVE) Ur Propoxyphene Screen (NEGATIVE) Ur Barbiturates Screen (NEGATIVE) Ur Tricyclics Screen (NEGATIVE) Ur Phencyclidine Scrn (NEGATIVE) Ur Amphetamine Screen (NEGATIVE) U Methamphetamines Scrn (NEGATIVE) Urine MDMA Screen (NEGATIVE) U Benzodiazepines Scrn (NEGATIVE) U Cocaine Metab Screen (NEGATIVE) U Marijuana (THC) Screen (NEGATIVE) SARS CoV-2 RNA Rapid NEREYDA Blood Type Gel Antibody Screen Med Orders - Current: Current Medications Acetaminophen (Acetaminophen 325 Mg Tab, 50 Tab Bulk Bottle) 650 mg PO Q4H PRN PRN Reason: Pain (moderate 4-6) Last Admin: 08/20/21 20:03 Dose: 650 mg Documented by: Docusate Sodium (Docusate Sodium 100 Mg Cap) 100 mg PO BID PRN PRN Reason: Constipation Emollient Ointment (Lanolin 100% Cream 40 Gm Tube) 0 gm TOP ASDIRECTED PRN PRN Reason: Sore Nipples Last Admin: 08/20/21 18:02 Dose: 1 applic Documented by: Ephedrine Sulfate (Ephedrine 50 Mg/Ml Sdv) 10 mg IVPUSH ASDIRECTED PRN PRN Reason: Hypotension Oxytocin/Sodium Chloride (Pitocin In Ns 20 Units/1,000 Ml) 20 unit in 1,000 mls @ 999 mls/hr IV ASDIRECTED JABIER Last Infusion: 08/20/21 17:45 Dose: 125 mls/hr Documented by: Lactated Ringer's (Ringers, Lactated) 1,000 mls @ 125 mls/hr IV ASDIRECTED JABIER Ibuprofen (Ibuprofen 200 Mg Tab, 24 Tab Bulk Bottle) 600 mg PO Q6H PRN PRN Reason: Pain Last Admin: 08/20/21 18:02 Dose: 600 mg Documented by: Sodium Chloride (Sodium Chloride 0.9% 10 Ml Syringe) 10 ml FLUSH ASDIRECTED PRN PRN Reason: Keep Vein Open Witch Fiorella (Witch Fiorella Medicated Pads 100/Jar) 1 pad TOP ASDIRECTED PRN PRN Reason: Hemorrhoids Last Admin: 08/21/21 10:03 Dose: 1 pad Documented by: Discontinued Medications Hydrocodone Bitart/Acetaminophen (Acetaminophen/Hydrocodone 325-5 Mg Tab) Confirm Administered Dose 2 tab .ROUTE .STK-MED ONE Stop: 08/21/21 05:42 Last Admin: 08/21/21 08:04 Dose: Not Given Documented by: Hydrocodone Bitart/Acetaminophen (Acetaminophen/Hydrocodone 325-5 Mg Tab) 2 tab PO NOW ONE Stop: 08/21/21 05:01 Last Admin: 08/21/21 05:45 Dose: 2 tab Documented by: Lactated Ringer's (Ringers, Lactated) 1,000 mls @ 999 mls/hr IV BOLUS ONE Stop: 08/20/21 12:05 Last Admin: 08/20/21 11:10 Dose: 999 mls/hr Documented by: Ropivacaine (Naropin 0.2%) Confirm Administered Dose 100 mls @ as directed .ROUTE .STK-MED ONE Stop: 08/20/21 12:17 - Infant Interaction Disposition, : [place] in Room with Family Infant Interaction: Holding Infant Feeding: Breastfed Infant; Nursed Well, Continues to Breastfeed, Encouraged to Breastfeed Support Person: - Recovery Exam Fundal Tone: Firm Fundal Level: 1 Fingerbreadths Below Umbilicus Fundal Placement: Midline Lochia Amount: Small Lochia Color: Rubra/Red Perineum Description: Intact, Minimal Bruising/Swelling Episiotomy/Laceration: None Bladder Status: Voiding - Exam General: Alert, Oriented HEENT: Pupils Equal Neck: Supple Lungs: Clear to Auscultation, Normal Respiratory Effort Cardiovascular: Regular Rate, Regular Rhythm GI/Abdominal Exam: Normal Bowel Sounds, Soft, No Organomegaly, Pelvis Stable Extremities: Normal Inspection, Normal Range of Motion Skin: Warm, Dry, Intact Neurological: No New Focal Deficit Psy/Mental Status: Alert, Normal Affect, Normal Mood - Problem List & Annotations (1) Normal spontaneous vaginal delivery SNOMED Code(s): 78279473, 993430563 Code(s): O80 - ENCOUNTER FOR FULL-TERM UNCOMPLICATED DELIVERY Status: Acute Current Visit: Yes (2) () SNOMED Code(s): 041213324 Code(s): Z78.9 - OTHER SPECIFIED HEALTH STATUS Status: Acute Current Visit: Yes (3) started SNOMED Code(s): 727781032 Code(s): XPD2634 - Status: Acute Current Visit: Yes (4) Active labor at term SNOMED Code(s): 71678978 Code(s): SFW7434 - Status: Acute Current Visit: Yes - Problem List Review Problem List Initiated/Reviewed/Updated: Yes - My Orders Last 24 Hours: My Active Orders 08/20/21 14:30 Notify Provider Vital Signs [RC] PRN 08/20/21 14:36 Patient Status [ADT] Routine Sodium Chloride 0.9% [Saline Flush] 10 ml FLUSH ASDIRECTED PRN Saline Lock Insert [OM.PC] Routine Resuscitation Status Routine 08/20/21 18:33 dain Kraus [[place]ke] 1 pad TOP ASDIRECTED PRN - Assessment Assessment:: 08/20/21 without complications No lacerations Adequate support, partner at bedside 08/21/21 without complication well Pumping to supplement feeds Adequate support, partner at bedside Back pain at epidural site - Plan Plan:: 08/20/21 in active labor Early decelerations but otherwise good variability Hgb 12.3 GBS negative Plan: Set up and prepare for delivery Anticipate Trying for an epidural but using nitrous now, may not have time for an epidural 08/20/21 1700 Routine cares Encourage and support Monitor bleeding Expect discharge between 24 and 48 hours 08/21/21 Continue routine cares Encourage and support and pumping Monitor bleeding Continue oral analgesics for back pain, some ambulation encouraged Expect discharge this evening after 24 hours
[2021-08-21] MEDS: Cyclobenzaprine 10 MG Tab PO ONE (13:27)
[2021-08-21 15:44] VITALS: BP 109/62; PULSE 75
--- NOTE | 2021-08-21 16:15 | PCM.SN.2 ---
- Free Text/Narrative Note: 08/21/21 Patient is feeling fairly well. Bleeding is light and bottom is not sore. She still complains of back pain where her epidural was placed. SENIOR ACCOUNTING ASSOCIATE called and is not concerned due to no swelling, redness, headache, or numbness. The pain has not worsened. It is exacerbated by standing and bending. It is relieved with head, pain relievers, and muscle relaxer. going well. Patient desires discharge. She understands that if her back pain gets worse at all, she develops a headache, fever, or numbness anywhere she needs to come to ER. Rx for Flexeril. Time Documentation
== END 2021-08-21 18:15 | disposition home or self-care (01) | DRG 807 ==
LOC: JP.OBCHECK 10:27 → JP.OB 10:29 → JP.OBCHECK 10:58 → JP.OB 10:58 → OBSVTOIN 14:36 → JP.MS 23:19
PROVIDERS: ADMIT Advanced Practice Midwife; ATTEND Advanced Practice Midwife
PROC: 10E0XZZ Delivery of Products of Conception, External Approach (ICD-10-PCS; principal; 2021-08-20)
PROC: 3E0R3BZ Introduction of Anesthetic Agent into Spinal Canal, Percutaneous Approach (ICD-10-PCS; 2021-08-20)
PROC: 10907ZC Drainage of Amniotic Fluid, Therapeutic from Products of Conception, Via Natural or Artificial Opening (ICD-10-PCS; 2021-08-20)
DX: O99.334 Smoking (tobacco) complicating childbirth (principal); Z37.0 Single live birth; F17.210 Nicotine dependence, cigarettes, uncomplicated; Z3A.39 39 weeks gestation of pregnancy; O76 Abnormality in fetal heart rate and rhythm complicating labor and delivery; Z20.822 Contact with and (suspected) exposure to COVID-19
CPT/HCPCS: 36415; 80305-QW; 81001; 84112; 85025; 86850; 86900; 86901; 99211; A9270-GY; J2590; J2795; J7120; U0002

== ENCOUNTER 2022-02-03 16:04 | Emergency (ER) | payer MEDICAID ==
[2022-02-03 16:18] VITALS: BP 119/75; PULSE 107
== END 2022-02-03 17:11 | disposition home or self-care (01) ==
LOC: JP.ED 16:04
DX: K04.7 Periapical abscess without sinus (principal); Z72.0 Tobacco use
CPT/HCPCS: 99282

== ENCOUNTER 2022-07-01 17:08 | Emergency (ER) | payer MEDICAID ==
[2022-07-01 17:26] VITALS: BP 129/87; PULSE 101
== END 2022-07-01 17:54 | disposition home or self-care (01) ==
LOC: JP.ED 17:08
DX: K04.7 Periapical abscess without sinus (principal); F17.210 Nicotine dependence, cigarettes, uncomplicated; Z88.1 Allergy status to other antibiotic agents; Z88.5 Allergy status to narcotic agent; Z88.8 Allergy status to other drugs, medicaments and biological substances
CPT/HCPCS: 99282

== ENCOUNTER 2023-04-03 13:07 | Emergency (ER) | payer MEDICAID ==
[2023-04-03 14:15] VITALS: BP 117/78; PULSE 88
[2023-04-03] MEDS ORDERED: Cyclobenzaprine 10 MG Tab PO ONE (14:55)
== END 2023-04-03 15:20 | disposition home or self-care (01) ==
LOC: JP.ED 13:07
DX: M54.42 Lumbago with sciatica, left side (principal); Z88.5 Allergy status to narcotic agent; Z88.8 Allergy status to other drugs, medicaments and biological substances; Z86.16 Personal history of COVID-19; Z72.0 Tobacco use
CPT/HCPCS: 36415; 85379; 99283; A9270

== ENCOUNTER 2024-01-11 12:31 | Emergency (ER) | payer MEDICAID ==
[2024-01-11 14:46] VITALS: BP 122/75; PULSE 102
[2024-01-11] MEDS: Ketorolac 30 MG/ML SDV IM ONE (15:40)
== END 2024-01-11 15:41 | disposition home or self-care (01) ==
LOC: JP.ED 12:31
DX: K04.7 Periapical abscess without sinus (principal); F17.210 Nicotine dependence, cigarettes, uncomplicated; Z88.6 Allergy status to analgesic agent; Z88.5 Allergy status to narcotic agent; Z86.16 Personal history of COVID-19
CPT/HCPCS: 99282

== ENCOUNTER 2025-05-18 21:07 | Emergency (ER) | payer MEDICAID ==
[2025-05-18] MEDS: Ketorolac 15 MG/ML SDV IVPUSH ONE (22:39)
[2025-05-18] MEDS: Sodium Chloride 0.9% 10 ML Syringe FLUSH PRN (22:40)
[2025-05-18 22:52] VITALS: BP 121/72
[2025-05-18 23:57] VITALS: PULSE 70
== END 2025-05-18 23:50 | disposition home or self-care (01) ==
LOC: JP.ED 21:07
DX: J02.0 Streptococcal pharyngitis (principal); F17.200 Nicotine dependence, unspecified, uncomplicated; Z88.8 Allergy status to other drugs, medicaments and biological substances; Z86.16 Personal history of COVID-19
CPT/HCPCS: 87426; 87651; 96361; 96374; 96375; 99283; 99284; J1885; J2765; J7030